=== PATIENT | female | born 1970 | race Caucasian/White ===

== ENCOUNTER → 2018-01-26 15:38 | Outpatient (CLI) | payer OTHER, SELFPAY ==
[2018-01-29 13:32] LABS: HPV Reflexed? NOT INDICATED
== END ==
PROVIDERS: Visit Provider Obstetrics & Gynecology
DX: Z12.4 Encounter for screening for malignant neoplasm of cervix (principal)
CPT/HCPCS: 88175; G0145

== ENCOUNTER → 2020-06-18 12:47 | Outpatient (CLI) | payer OTHER, SELFPAY ==
--- NOTE | 2020-06-17 | SOF_PTH ---
PATIENT: BERTRAND CHANG LOC: [facility] U#:[id number] AGE/SX: 54/F ROOM: RE06/18/[address]: Dr. Beth Berger MD : 1970 BED: DIS: SPEC #: [id number] RECD: 06/18/20 12:12 STATUS: LASHAE REKathrin #: [id number] KURT: 06/17/20 00:[address]: Beth Berger DEPT: SURGICAL PATHOLOGY RECD BY: Meseret Mcwilliams ENTERED: 06/18/20 13:12 SP TYPE: SOFT TISS OT DR: No Primary Care Phys Tissues: Soft tissues, NOS Procedures: Surgery Specimen Level III HEADER OPERATION: Excision of nodule PRE-OP DIAGNOSIS: Subcutaneous nodule TISSUE SUBMITTED: Subcutaneous nodule MICROSCOPIC DIAGNOSIS Subcutaneous nodule, not further specified, excision: Mature adipose tissue consistent with lipoma. AM:hailey 06/19/2020 MICROSCOPIC DESCRIPTION Slides are reviewed. GROSS DESCRIPTION Received is one container labeled with the patient's name and not further designated. The specimen consists of multiple irregular fragments of yellow fatty tissue that in aggregate measure 3 x 2.5 x 0.2 cm. The specimen is totally submitted in one cassette. / AM:hailey 06/18/20 TC:1 CPT: 44609
== END ==
PROVIDERS: Referring Provider Surgery; Visit Provider Surgery
DX: R22.9 Localized swelling, mass and lump, unspecified (principal)
CPT/HCPCS: 88304; 88305